=== PATIENT | female | born 1935 | race Caucasian/White ===

== ENCOUNTER → 2016-12-04 | Outpatient (CLI) | payer BC ==
[~2016-12-04] MED LIST: ASPEC81 PO; CHOL1000 PO; CLB200 PO; CLTP PO; HYDR-5688 PO; MULT-513 PO; PSYL55.43 PO; [UNRECOGNIZED DRUG - OTHER] PO; [UNRECOGNIZED DRUG - OTHER] PO
--- NOTE | 2016-12-04 15:30 | MAMMOGRAPHY REPORT ---
BILATERAL DIGITAL SCREENING MAMMOGRAM WITH CAD: 12/04/2016 CLINICAL HISTORY: Routine screening. During this screening exam, the patient reported right breast a nd axilla tenderness for 6-7 months. TECHNIQUE: Bilateral CC and MLO views were obtained. Current study was also evaluated with a Compute r Aided Detection (CAD) system. COMPARISON: Comparison is made to exams dated: 12/04/2015 mammogram, 04/26/2014 mammogram, 01/17/2013 m ammogram, 01/14/2012 mammogram, 12/17/2010 mammogram, and 08/07/2009 mammogram - [facility] nter. BREAST COMPOSITION: There are scattered areas of fibroglandular density in both breasts. FINDINGS: There are diffuse benign rim calcifications and moderate vascular calcifications in the anna asts. No suspicious mass, architectural distortion or cluster of suspicious microcalcifications is s een. IMPRESSION: ACR BI-RADS CATEGORY 1: NEGATIVE 1. Stable bilateral mammograms, without mammographic evidence of malignancy. 2. The patient reported right breast and axillary tenderness for 6-7 months to our mammography techn ologist during the screening exam. Clinical follow-up is recommended, and a targeted ultrasound may be useful, if clinically indicated. Otherwise, a 1 year screening mammogram is recommended. The patient will receive written notification of the results. Approximately 10% of breast cancers are not detected with mammography. A negative mammographic report should not delay biopsy if a clinically suggestive mass is present. Rosa Vogt M.D. ay/:12/04/2016 13:37:17 Roller Repairer: Fallon DOVE(Stoney)(Ignacio), [facility] letter sent: Normal 1/2 BI-RADS Code: ACR BI-RADS Category 1: Negative
== END | disposition home or self-care (01) ==
LOC: C.MAMM 12:41
PROVIDERS: ATTEND Family Medicine
DX: Z12.31 Encounter for screening mammogram for malignant neoplasm of breast (principal); N64.89 Other specified disorders of breast

== ENCOUNTER → 2017-12-06 | Outpatient (CLI) | payer BC ==
[~2017-12-06] MED LIST changes: -ASPEC81 PO; +ASPI-320 PO
--- NOTE | 2017-12-07 07:31 | MAMMOGRAPHY REPORT ---
BILATERAL DIGITAL SCREENING MAMMOGRAM TOMOSYNTHESIS WITH CAD: 12/06/2017 CLINICAL HISTORY: Routine screening. The patient reported pain and thickening in the lateral right br east for 1 year. TECHNIQUE: The study was acquired using full field digital technology and interpreted from soft copy. Breast tomosynthesis in addition to standard 2D mammography was performed. Current study was also ev aluated with a Computer Aided Detection (CAD) system. COMPARISON: Comparison is made to exams dated: 12/04/2016 mammogram and 12/04/2015 mammogram - [facility]. BREAST COMPOSITION: There are scattered areas of fibroglandular density in both breasts. FINDINGS: A square-shaped pain marker overlies the area of pain and thickening in the right upper out er quadrant. There is no evidence of a new suspicious mass, asymmetry, area of distortion or suspici ous microcalcifications bilaterally, with particular attention to the area of pain and thickening in the right upper outer quadrant. There are diffuse benign rim calcifications and moderate vascular ca lcifications. IMPRESSION: ACR BI-RADS CATEGORY 1: NEGATIVE 1. Stable bilateral mammograms, without mammographic evidence of malignancy. 2. Clinical follow-up is recommended for the reported chronic pain in the right upper outer quadrant . Otherwise a one year screening mammogram is recommended. (12/07/2018) The patient will receive written notification of the results. Some breast cancers are not detected with mammography. A negative mammographic report should not hugo y biopsy if a clinically suggestive mass is present. Rosa Vogt M.D. ay/:12/06/2017 17:00:32 Advanced Registered Nurse: RT Guevara(Stoney)(M), [facility] letter sent: Normal 1/2 BI-RADS Code: ACR BI-RADS Category 1: Negative
== END | disposition home or self-care (01) ==
LOC: C.MAMM 13:11
PROVIDERS: ATTEND Family Medicine
DX: Z12.31 Encounter for screening mammogram for malignant neoplasm of breast (principal); N64.4 Mastodynia

== ENCOUNTER 2017-12-19 12:13 | Observation (INO) | payer BC ==
[2017-12-19] VITALS (7 sets, daily range): BP systolic 140–192; BP diastolic 68–97; PULSE 72–106; TEMP 36.5–36.8; O2SAT 94–98; Ht 157.5 cm; Wt 91.3 kg
[~2017-12-19] VITALS: Ht 157.5 cm; Wt 91.3 kg
[2017-12-19] MEDS ORDERED: ALBUT/IPRATROP 3MG/0.5MG NEB 3 ML VIAL INH STA (12:29)
[2017-12-19] MEDS ORDERED: SODIUM CHLORIDE 0.9% 500ML 500 ML IV STA (12:29)
--- NOTE | 2017-12-19 12:31 | EMERGENCY ROOM VISIT NOTE ---
History Report prepared by Leda: Odell Griffiths Under the Supervision of: Dr. Glenn Man M.D. First contact with patient: 12:17 Chief Complaint: CHEST PAIN Stated Complaint: CHEST PAIN, HEADACHE, DIZZY History of Present Illness The patient is a 82 year old female who presents to the Emergency Room with complaints of intermittent chest pain that began an hour and a half ago. Patient states the chest pain came on when she stood up and only "lasted a couple of minutes". She states the pain radiated to her shoulders bilaterally. She adds she was also SOB and dizzy. Patient denies a history of similar symptoms. She denies any chest pain in the ER but states she still has intermittent SOB. Patient adds she has congestion but states it is chronic. Patient denies fevers, chills, cough, nausea, diaphoresis, vomiting, urinary symptoms, and numbness. Patient denies a history of hyperlipidemia, heart attacks, and smoking. Patient is present with family. Source of History: patient Onset: Hour and a half ago Position: chest Timing: intermittent Modifying Factors (Worsening): other (Standing up) Modifying Factors (Relieving): other (None) Associated Symptoms: + SOB, No fevers, No chills, No diaphoresis, No cough, No nausea, No vomiting, No numbness Note: Positive dizziness and congestion. Review of Systems See HPI for pertinent positives and negatives. A total of ten systems were reviewed and were otherwise negative. Past Medical & Surgical Medical Problems: (1) Arthritis of left hip (2) Diverticulosis Colon (W/O Ment Of Hemorrhage) (3) HEARING LOSS NEC (4) Hypertension Nos (5) LUMP OR MASS IN BREAST (6) MIXED HYPERLIPIDEMIA (7) MORBID OBESITY (8) OTHER CONDITIONS OF BRAIN (9) pylonephritis Family History Omitted secondary to age. Social History Smoking Status: Never Smoker Marital Status: Housing Status: lives with family Current/Historical Medications No Active Prescriptions or Reported Meds Allergies Coded Allergies: Amoxicillin (Unverified Allergy, Intermediate, ., 12/19/17) Iron (Verified Allergy, Unknown, HIVES, 12/19/17) In higher doses- patient states if she absolutely needs to take iron supplement she can take since she does not accept blood transfusions Physical Exam Vital Signs Date Time Temp Pulse Resp B/P (MAP) Pulse Ox O2 Delivery O2 Flow Rate FiO2 12/19/17 14:30 98 Room Air 12/19/17 14:19 68 16 183/86 94 Room Air 12/19/17 12:49 70 16 161/80 99 Room Air 12/19/17 12:42 75 16 190/70 97 Room Air 12/19/17 12:42 97 Room Air 12/19/17 12:31 75 12/19/17 12:23 97 Room Air 12/19/17 12:15 36.7 83 17 191/96 95 Room Air Physical Exam GENERAL: Awake, alert, fatigued-appearing, in no distress HENT: Normocephalic, atraumatic. Oropharynx unremarkable. Mucous membranes are dry. EYES: Normal conjunctiva. Sclera non-icteric. NECK: Supple. No nuchal rigidity. FROM. No JVD. RESPIRATORY: Isolated intermittent wheezing otherwise clear to auscultation. CARDIAC: Regular rate, normal rhythm. Extremities warm and well perfused. Pulses equal. ABDOMEN: Soft, non-distended. No tenderness to palpation. No rebound or guarding. No masses. RECTAL: Deferred. MUSCULOSKELETAL: Chest examination reveals no tenderness. The back is symmetrical on inspection without obvious abnormality. There is no CVA tenderness to palpation. No joint edema. LOWER EXTREMITIES: Calves are equal size bilaterally and non-tender. No edema. No discoloration. NEURO: Normal sensorium. No sensory or motor deficits noted. SKIN: No rash or jaundice noted. Medical Decision & Procedures ER Provider Diagnostic Interpretation: Radiology results as stated below per my review and radiologist interpretation: CHEST ONE VIEW PORTABLE CLINICAL HISTORY: CHEST PAIN dyspnea COMPARISON STUDY: 04/22/2015 FINDINGS: The bones soft tissues and hemidiaphragms are normal. The cardiomediastinal silhouette is normal. The lungs are clear. The pulmonary vasculature is normal. IMPRESSION: Negative chest. The above report was generated using voice recognition software. It may contain grammatical, syntax or spelling errors. Electronically signed by: Merrick Castillo M.D. 12/19/2017 12:35 PM Laboratory Results 12/19/17 12:40 Red Blood Count 4.56, Mean Corpuscular Volume 94.1, Mean Corpuscular Hemoglobin 33.3, Mean Corpuscular Hemoglobin Concent 35.4, Mean Platelet Volume 10.3, Neutrophils (%) (Auto) 57.9, Lymphocytes (%) (Auto) 31.5, Monocytes (%) (Auto) 9.4, Eosinophils (%) (Auto) 0.4, Basophils (%) (Auto) 0.6, Neutrophils # (Auto) 5.23, Lymphocytes # (Auto) 2.85, Monocytes # (Auto) 0.85, Eosinophils # (Auto) 0.04, Basophils # (Auto) 0.05 12/19/17 12:40 Test 12/19/17 12:40 White Blood Count 9.04 K/uL (4.8-10.8) Red Blood Count 4.56 M/uL (4.2-5.4) Hemoglobin 15.2 g/dL (12.0-16.0) Hematocrit 42.9 % (37-47) Mean Corpuscular Volume 94.1 fL (80-100) Mean Corpuscular Hemoglobin 33.3 pg (25-34) Mean Corpuscular Hemoglobin Concent 35.4 g/dl (32-36) Platelet Count 179 K/uL (130-400) Mean Platelet Volume 10.3 fL (7.4-10.4) Neutrophils (%) (Auto) 57.9 % Lymphocytes (%) (Auto) 31.5 % Monocytes (%) (Auto) 9.4 % Eosinophils (%) (Auto) 0.4 % Basophils (%) (Auto) 0.6 % Neutrophils # (Auto) 5.23 K/uL (1.4-6.5) Lymphocytes # (Auto) 2.85 K/uL (1.2-3.4) Monocytes # (Auto) 0.85 K/uL (0.11-0.59) Eosinophils # (Auto) 0.04 K/uL (0-0.5) Basophils # (Auto) 0.05 K/uL (0-0.2) RDW Standard Deviation 42.1 fL (36.4-46.3) RDW Coefficient of Variation 12.4 % (11.5-14.5) Immature Granulocyte % (Auto) 0.2 % Immature Granulocyte # (Auto) 0.02 K/uL (0.00-0.02) Prothrombin Time 10.3 SECONDS (9.0-12.0) Prothromb Time International Ratio 1.0 (0.9-1.1) Anion Gap 5.0 mmol/L (3-11) Est Creatinine Clear Calc Drug Dose 65.4 ml/min Estimated GFR () 93.5 Estimated GFR (Non- 80.7 BUN/Creatinine Ratio 28.3 (10-20) Calcium Level 9.3 mg/dl (8.5-10.1) Phosphorus Level 2.8 mg/dl (2.5-4.9) Magnesium Level 2.0 mg/dl (1.8-2.4) Total Bilirubin 0.5 mg/dl (0.2-1) Direct Bilirubin 0.1 mg/dl (0-0.2) Aspartate Amino Transf (AST/SGOT) 19 U/L (15-37) Alanine Aminotransferase (ALT/SGPT) 32 U/L (12-78) Alkaline Phosphatase 117 U/L (45-117) Pro-B-Type Natriuretic Peptide 86 pg/ml (0-1800) Total Protein 7.6 gm/dl (6.4-8.2) Albumin 4.1 gm/dl (3.4-5.0) Lipase 146 U/L (73-393) Laboratory results reviewed by me Medications Administered Medications (Trade) Dose Ordered Sig/Declan Route Start Time Stop Time Status Last Admin Dose Admin Albuterol/ Ipratropium (Duoneb) 3 ml NOW STAT INH 12/19/17 12:29 12/19/17 12:34 DC 12/19/17 12:48 3 ML Sodium Chloride 500 ml @ 999 mls/hr Q31M STAT IV 12/19/17 12:29 12/19/17 12:59 DC 12/19/17 12:48 999 MLS/HR Prednisone (PredniSONE TAB) 60 mg NOW STAT PO 12/19/17 13:46 12/19/17 13:47 DC 12/19/17 13:46 60 MG ECG Per My Interpretation Indication: chest pain Rate (beats per minute): 77 Rhythm: sinus rhythm Findings: no acute ischemic change, other (Normal axis) ED Course 1220: The patient was evaluated in room A12B. A complete history and physical exam was performed. 1345: I reevaluated the patient and updated her on her findings. 1402: Upon reexamination, the patient will be further evaluated. I discussed the test results and treatment plan with her. The patient will be evaluated for further management. Medical Decision I reviewed the patient's past medical history, medications, and the nursing notes as described above. Differential diagnosis: Etiologies such as cardiac ischemia, aortic dissection, pulmonary embolism, pneumonia, pneumothorax, musculoskeletal, infections, pericarditis, myocarditis , esophageal rupture, gastrointestinal, as well as others were entertained. The patient is an 82-year-old woman who presents emergency department with episode of chest pain this morning with severe pressure on her chest lasting 3 minutes with repeat episode minutes later with associated constant shortness of breath since then and radiation to her shoulders per hpi. On arrival the patient is in no acute distress, afebrile stable vital signs. She denies chest pain at this time. On exam the patient has scant intermittent isolated wheeze but otherwise clear lungs. EKG demonstrates sinus rhythm at 77 without acute ischemia. Of note machine reads as junctional rhythm however regular P waves are noted albeit with low amplitude. Chest x-ray negative. WBC within normal limits. On remarkable however with BUN/creatinine> 20 suggesting mild dehydration. Troponin negative 2 hours after Sx onset. Patient with improvement in her SOB after duoneb therefore possible bronchitis component. Will additional tx with prednisone. Otherwise given the patient's symptoms of severe chest heaviness, lightheadedness, shortness of breath, radiation to her shoulders story is concerning for possible underlying cardiac etiology. Given the patient's age HEART score 6, moderate risk, thus reasonable to admit for further cardiac r/o. Case was discussed with Dr. Blake, [facility], who will admit the patient for further management. Medication Reconcilliation Current Medication List: was personally reviewed by me Blood Pressure Screening Patient's blood pressure: Elevated blood pressure Referred to hospitalist. Consults Time Called: 1354 Consulting Physician: Dr. Maria E LAMB Returned Call: 1356 I discussed the patient with Dr. Maria E LAMB will evaluate the patient for further treatment. Impression Primary Impression: Bronchitis Additional Impression: Substernal chest pain Scribe Attestation The scribe's documentation has been prepared under my direction and personally reviewed by me in its entirety. I confirm that the note above accurately reflects all work, treatment, procedures, and medical decision making performed by me. Departure Information Dispostion Being Evaluated By Hospitalist Prescriptions No Active Prescriptions or Reported Meds Referrals Huey Cardoso M.D. (PCP) Forms HOME CARE DOCUMENTATION FORM, IMPORTANT VISIT INFORMATION Patient Instructions My [facility] Problem Qualifiers
--- NOTE | 2017-12-19 12:36 | DIAGNOSTIC IMAGING REPORT ---
CHEST ONE VIEW PORTABLE CLINICAL HISTORY: CHEST PAIN dyspnea COMPARISON STUDY: 04/22/2015 FINDINGS: The bones soft tissues and hemidiaphragms are normal. The cardiomediastinal silhouette is normal. The lungs are clear. The pulmonary vasculature is normal. IMPRESSION: Negative chest. The above report was generated using voice recognition software. It may contain grammatical, syntax or spelling errors. Electronically signed by: Merrick Castillo M.D. 12/19/2017 12:35 PM Dictated Date/Time: 12/19/2017 12:35 PM
[2017-12-19 12:50] LABS: BASO % 0.6 %; BASO ABS # 0.05 K/uL (0-0.2); EOS % 0.4 %; EOS ABS # 0.04 K/uL (0-0.5); HEMATOCRIT 42.9 % (37-47); HEMOGLOBIN 15.2 g/dL (12.0-16.0); IG# 0.02 K/uL (0.00-0.02); LYMPH % 31.5 %; LYMPH ABS # 2.85 K/uL (1.2-3.4); MEAN CELL VOLUME 94.1 fL (80-100); MEAN CORPUSCULAR HEMOGLOBIN 33.3 pg (25-34); MEAN CORPUSCULAR HGB CONC 35.4 g/dl (32-36); MEAN PLATELET VOLUME 10.3 fL (7.4-10.4); MONO % 9.4 %; MONO ABS # 0.85 K/uL (0.11-0.59); NEUT % 57.9 %; NEUT ABS # 5.23 K/uL (1.4-6.5); PLATELET COUNT 179 K/uL (130-400); RED CELL DISTRIBUTION WIDTH CV 12.4 % (11.5-14.5); RED CELL DISTRIBUTION WIDTH SD 42.1 fL (36.4-46.3); WHITE BLOOD COUNT 9.04 K/uL (4.8-10.8)
[2017-12-19 13:10] LABS: ALBUMIN 4.1 gm/dl (3.4-5.0); ALKALINE PHOSPHATASE 117 U/L (45-117); ALT/SGPT 32 U/L (12-78); AST/SGOT 19 U/L (15-37); BLOOD UREA NITROGEN 20 mg/dl (7-18); CALCIUM 9.3 mg/dl (8.5-10.1); CARBON DIOXIDE 28 mmol/L (21-32); GLUCOSE 145 mg/dl (70-99); LIPASE 146 U/L (73-393); PHOSPHORUS 2.8 mg/dl (2.5-4.9); POTASSIUM 4.2 mmol/L (3.5-5.1); SODIUM 136 mmol/L (136-145); TOTAL PROTEIN 7.6 gm/dl (6.4-8.2)
[2017-12-19] MEDS ORDERED: ONDANSETRON INJ 2 MG/ML 2 ML VIAL IV PRN (15:00)
[2017-12-19] MEDS ORDERED: ACETAMINOPHEN 325 MG TAB PO PRN (15:00)
[2017-12-19] MEDS ORDERED: POLYETHYLENE (MIRALAX) 17 GM PACK PO PRN (15:00)
[2017-12-19] MEDS ORDERED: ALUMINUM/MAGNESIUM/SIMETH (MAALOX MAX) 30 ML UDC PO PRN (15:00)
[2017-12-19] MEDS ORDERED: MAGNESIUM HYDROXIDE SUSP 30 ML UDC PO PRN (15:00)
[2017-12-19] MEDS ORDERED: IV FLUIDS COMPLETED PRN (15:30)
--- NOTE | 2017-12-19 15:34 | History and Physical ---
History & Physical Date & Time of Service: Dec 19, 2017 at 15:13 Chief Complaint: Chest Pain, Headache, Dizzy Primary Care Physician: Huey Cardoso M.D. History of Present Illness Source: patient, family ( and children at bedside), clinic records, hospital records This is an 82 y/o female with a history of asthma, sensorineural hearing loss, osteoarthritis, and vertigo who presented to the ED on 12/19 with chest pain and shortness of breath. The patient states she was at a meeting this morning and upon standing up she developed a sharp pain across her chest and into her shoulders and back. She states she then developed shortness of breath and dizziness. She states this episode lasted about 5 minutes, although her shortness of breath lingered longer until she was treated in the ED. She has never experienced anything like this in the past, so the pain was concerning for her. She currently denies any pain and states her SOB has resolved, as well as her dizziness. She does report feeling somewhat fatigued. She denies any previous cardiac history and states her blood pressure is typically normal or low. She does report a productive cough with clear sputum but states this is chronic. The patient denies fevers, chills, sweats, palpitations, claudication, wheezing, nausea, vomiting, abdominal pain, dysuria, hematuria, urinary retention, paralysis, weakness, numbness and tingling. Past Medical/Surgical History Medical Problems: (1) Arthritis of left hip (2) Diverticulosis Colon (W/O Ment Of Hemorrhage) (3) HEARING LOSS NEC (4) Hypertension Nos (5) LUMP OR MASS IN BREAST (6) MIXED HYPERLIPIDEMIA (7) MORBID OBESITY (8) OTHER CONDITIONS OF BRAIN (9) pylonephritis Asthma Sensorineural hearing loss Osteoarthritis Vertigo Family History Congestive heart failure Diabetes mellitus Heart disease Hypothyroidism Myocardial infarction Rectal cancer Social History Smoking Status: Never Smoker Smokeless Tobacco Use: No Alcohol Use: none Drug Use: none Marital Status: Housing status: lives with family ( and son) Occupational Status: retired Immunizations History of Influenza Vaccine: Yes History of Tetanus Vaccine?: No History of Pneumococcal: Yes History of Hepatitis B Vaccine: No Allergies Coded Allergies: Amoxicillin (Unverified Allergy, Intermediate, ., 12/19/17) Iron (Verified Allergy, Unknown, HIVES, 12/19/17) In higher doses- patient states if she absolutely needs to take iron supplement she can take since she does not accept blood transfusions Home Medications No Active Prescriptions or Reported Meds Review of Systems Constitutional: +Fatigue. No fever, No chills, No sweats Eyes: No worsening of vision, No eye pain, No diplopia ENT: +Severe hearing loss, baseline. No nasal symptoms, No trouble swallowing Respiratory: +Productive cough, chronic. Shortness of breath, resolved. No wheezing Cardiovascular: +Chest pain. No claudication, No palpitations Abdomen: No pain, No nausea, No vomiting Musculoskeletal: No joint pain, No muscle pain, No swelling Genitourinary - Female: No dysuria, No urinary retention, No hematuria Neurologic: No paralysis, No weakness, No numbness/tingling Integumentary: No rash, No itch, No color change Physical Exam Vital Signs Date Time Temp Pulse Resp B/P (MAP) Pulse Ox O2 Delivery O2 Flow Rate FiO2 12/19/17 14:19 68 16 183/86 94 Room Air 12/19/17 12:49 70 16 161/80 99 Room Air 12/19/17 12:42 75 16 190/70 97 Room Air 12/19/17 12:42 97 Room Air 12/19/17 12:31 75 12/19/17 12:23 97 Room Air 12/19/17 12:15 36.7 83 17 191/96 95 Room Air General appearance: +Obese. Well-developed, well-nourished, no apparent distress Head: Normocephalic, atraumatic Eyes: Normal inspection, PERRL, EOMI ENT: +Severe hearing loss, chronic. Communicates by reading lips. Normal ENT inspection, pharynx normal Neck: Supple, no JVD, trachea midline Respiratory/Chest: +Minimal wheezing. Normal breath sounds, no respiratory distress Cardiovascular: Regular rate & rhythm, no gallop, no murmur Abdomen/GI: Normal bowel sounds, non-tender, soft Extremities/Musculoskeletal: Normal inspection, no calf tenderness, no pedal edema Neurological/Psych: Alert, normal mood/affect, oriented x 3 Skin: Normal color, warm/dry, no rash Diagnostics Laboratory Results Results Past 24 Hours Test 12/19/17 12:40 12/19/17 15:00 Range/Units White Blood Count 9.04 4.8-10.8 K/uL Red Blood Count 4.56 4.2-5.4 M/uL Hemoglobin 15.2 12.0-16.0 g/dL Hematocrit 42.9 37-47 % Mean Corpuscular Volume 94.1 80-100 fL Mean Corpuscular Hemoglobin 33.3 25-34 pg Mean Corpuscular Hemoglobin Concent 35.4 32-36 g/dl Platelet Count 179 130-400 K/uL Mean Platelet Volume 10.3 7.4-10.4 fL Neutrophils (%) (Auto) 57.9 % Lymphocytes (%) (Auto) 31.5 % Monocytes (%) (Auto) 9.4 % Eosinophils (%) (Auto) 0.4 % Basophils (%) (Auto) 0.6 % Neutrophils # (Auto) 5.23 1.4-6.5 K/uL Lymphocytes # (Auto) 2.85 1.2-3.4 K/uL Monocytes # (Auto) 0.85 0.11-0.59 K/uL Eosinophils # (Auto) 0.04 0-0.5 K/uL Basophils # (Auto) 0.05 0-0.2 K/uL RDW Standard Deviation 42.1 36.4-46.3 fL RDW Coefficient of Variation 12.4 11.5-14.5 % Immature Granulocyte % (Auto) 0.2 % Immature Granulocyte # (Auto) 0.02 0.00-0.02 K/uL Prothrombin Time 10.3 9.0-12.0 SECONDS Prothromb Time International Ratio 1.0 0.9-1.1 Sodium Level 136 136-145 mmol/L Potassium Level 4.2 3.5-5.1 mmol/L Chloride Level 103 98-107 mmol/L Carbon Dioxide Level 28 21-32 mmol/L Anion Gap 5.0 3-11 mmol/L Blood Urea Nitrogen 20 7-18 mg/dl Creatinine 0.70 0.60-1.20 mg/dl Est Creatinine Clear Calc Drug Dose 65.4 ml/min Estimated GFR () 93.5 Estimated GFR (Non- 80.7 BUN/Creatinine Ratio 28.3 10-20 Random Glucose 145 70-99 mg/dl Calcium Level 9.3 8.5-10.1 mg/dl Phosphorus Level 2.8 2.5-4.9 mg/dl Magnesium Level 2.0 1.8-2.4 mg/dl Total Bilirubin 0.5 0.2-1 mg/dl Direct Bilirubin 0.1 0-0.2 mg/dl Aspartate Amino Transf (AST/SGOT) 19 15-37 U/L Alanine Aminotransferase (ALT/SGPT) 32 12-78 U/L Alkaline Phosphatase 117 45-117 U/L Troponin I < 0.015 0-0.045 ng/ml Pro-B-Type Natriuretic Peptide 86 0-1800 pg/ml Total Protein 7.6 6.4-8.2 gm/dl Albumin 4.1 3.4-5.0 gm/dl Lipase 146 73-393 U/L Diagnostic Radiology Reviewed the following studies and agree with interpretation as follows: CHEST ONE VIEW PORTABLE CLINICAL HISTORY: CHEST PAIN dyspnea COMPARISON STUDY: 04/22/2015 FINDINGS: The bones soft tissues and hemidiaphragms are normal. The cardiomediastinal silhouette is normal. The lungs are clear. The pulmonary vasculature is normal. IMPRESSION: Negative chest. EKG Reviewed EKG and agree with interpretation as follows: 77 bpm, normal sinus rhythm Impression Assessment and Plan 82 y/o female with a history of asthma, sensorineural hearing loss, osteoarthritis, and vertigo who presented to the ED on 12/19 with chest pain and shortness of breath. Pt hypertensive on arrival, BP up to 191/96. Pt otherwise afebrile, VSS. CXR no acute disease. EKG no acute ischemic changes. Troponin negative. Labs are grossly unremarkable. Chest pain, ACS r/o -Admit to telemetry for observation -Trend cardiac enzymes q8h x 3, first trop negative -Dobutamine tress echo in am if negative -NPO after midnight -Fasting lipid panel -Random BSG 145, will check HgbA1c -EKG q am and prn chest pain Elevated blood pressure w/o diagnosis of HTN--per pt and family, BP is normally very well controlled if not low -Pt states automatic cuff is squeezing too tight and is painful. She has been holding her breath, clenching her arm and bearing down while her BP is being taken so readings may not be accurate -Will check BP manually to see if this improves -If BP still elevated, hydralazine 10 mg IV q6h prn SBP >180 -If BP staying persistently high, will initiate scheduled antihypertensives. Will hold off for now as BP is usually low/normal and may be elevated now due to stress/anxiety relating to this new chest pain Chronic cough, possible chronic bronchitis, h/o asthma--pt states she feels better after prednisone/DuoNeb -Pt given prednisone 60 mg PO x1 in ED. Will quickly taper, decrease by 10 mg qd starting w/50 mg tomorrow -DuoNebs QIDR and q2h prn SOB/wheezing Osteoarthritis -Tylenol prn pain DVT prophylaxis -Enoxaparin 40 mg SC q24h -SINA Dangelo Code Status -Level I, FULL RESUSCITATION STATUS -No prolonged measures -No blood or blood products ([facility]) Resuscitation Status VTE Prophylaxis Will order VTE Prophylaxis: Yes
[2017-12-19] MEDS ORDERED: HydrALAZINE HCL 20 MG/ML VIAL IV. PRN (15:45)
[2017-12-19] MEDS ORDERED: ENOXAPARIN 40 MG/0.4 ML SYR SC SCH (17:00)
[2017-12-19] MEDS: ALBUT/IPRATROP 3MG/0.5MG NEB 3 ML VIAL INH SCH ×2 (17:25→19:08)
[2017-12-19 21:01] LABS: CKMB 3.3 ng/ml (0.5-3.6)
[2017-12-20] VITALS (7 sets, daily range): BP systolic 140–143; BP diastolic 62–86; PULSE 69–96; TEMP 36.5–37; O2SAT 93–96
[2017-12-20 04:42] LABS: HEMATOCRIT 41.4 % (37-47); HEMOGLOBIN 14.3 g/dL (12.0-16.0); MEAN CORPUSCULAR HEMOGLOBIN 32.1 pg (25-34); MEAN CORPUSCULAR HGB CONC 34.5 g/dl (32-36); MEAN PLATELET VOLUME 10.6 fL (7.4-10.4); PLATELET COUNT 190 K/uL (130-400); RED CELL DISTRIBUTION WIDTH CV 12.3 % (11.5-14.5); RED CELL DISTRIBUTION WIDTH SD 41.8 fL (36.4-46.3); WHITE BLOOD COUNT 10.42 K/uL (4.8-10.8)
[2017-12-20 05:05] LABS: BLOOD UREA NITROGEN 19 mg/dl (7-18); CARBON DIOXIDE 25 mmol/L (21-32); CHOLESTEROL 197 mg/dl (0-200); CKMB 2.4 ng/ml (0.5-3.6); CREATININE 0.71 mg/dl (0.60-1.20); GLUCOSE 105 mg/dl (70-99); LDL CHOLESTEROL CALCULATED 110 mg/dl; POTASSIUM 4.2 mmol/L (3.5-5.1); SODIUM 139 mmol/L (136-145)
[2017-12-20] MEDS: ALBUT/IPRATROP 3MG/0.5MG NEB 3 ML VIAL INH SCH ×3 (07:19→15:43)
[2017-12-20] MEDS ORDERED: DOBUTamine HCL 12.5 MG/ML 20 ML VIAL ONE (10:09)
[2017-12-20] MEDS ORDERED: ATROPINE SULFATE 0.1 MG/ML 10 ML SYR ONE (10:10)
[2017-12-20] MEDS ORDERED: METOPROLOL TARTRATE 1 MG/ML VIAL ONE (10:10)
[2017-12-20] MEDS ORDERED: PERFLUTREN LIPID MICROSPHERE (DEFINITY) IV ONE (10:47)
--- NOTE | 2017-12-20 14:46 | Discharge Instructions ---
Discharge Instructions Date of Service Dec 20, 2017. Admission Reason for Admission: Bronchitis, Substernal Chest Pain Discharge Discharge Diagnosis / Problem: Chest pain, bronchitis Discharge Goals Goal(s): Improve disease control Activity Recommendations Activity Limitations: resume your previous activity Exercise/Sports Limitations: gradually increase as tolerated . Instructions / Follow-Up Instructions / Follow-Up Please follow up with your primary care provider within about a week. Because your heart rate became a bit elevated with ambulation, I will have you follow up with an outpatient heart rhythm study. Our nurse navigator will set that up for you and the office will call you with an appointment You will be discharged with a prednisone taper as follows: 40 mg x 1 day 30 mg x 1 day 20 mg x 1 day 10 mg x 1 day Current Hospital Diet Patient's current hospital diet: AHA Diet (Heart Healthy) Discharge Diet Recommended Diet: AHA Diet (Heart Healthy) Procedures Procedures Performed: Dobutamine stress test Pending Studies Studies pending at discharge: no Laboratory Results Hemoglobin A1c Test 12/19/17 12:40 Range/Units Estimated Average Glucose 97 mg/dl Hemoglobin A1c 5.0 4.5-5.6 % Lipid Panel Test 12/20/17 04:08 Range/Units Triglycerides Level 176 H 0-150 mg/dl Cholesterol Level 197 0-200 mg/dl HDL Cholesterol 52 mg/dl Cholesterol/HDL Ratio 3.8 LDL Cholesterol, Calculated 110 mg/dl Medical Emergencies . Who to Call and When: Medical Emergencies: If at any time you feel your situation is an emergency, please call 911 immediately. . Non-Emergent Contact Non-Emergency issues call your: Primary Care Provider Call Non-Emergent contact if: you have a fever, you have any medication questions . . "Provider Documentation" section prepared by Alanis Bryant. .
[2017-12-20] MEDS ORDERED: PRD10 PO (14:51)
--- NOTE | 2017-12-20 14:58 | Discharge Summary ---
Discharge Summary Date of Service Dec 20, 2017. Discharge Summary Admission Date: Dec 19, 2017 at 15:08 Discharge Date: Dec 20, 2017 Discharge Disposition: Home Principal Diagnosis: chest pain Immunizations: Have You Had Influenza Vaccine: Yes History of Tetanus Vaccine?: No History of Pneumococcal: Yes History of Hepatitis B Vaccine: No Procedures: Dobutamine Stress Test - normal Medication Reconciliation New Medications: Prednisone (Prednisone) 10 Mg Tab 10 MG PO DAILY for 4 Days, #10 TAB Decrease by 10 mg daily 40 mg x 1 day 30 mg x 1 day 20 mg x 1 day 10 mg x 1 day Discharge Exam ROS Constitutional: no chills, aches, sweats or fever Respiratory: no sob,cough, sputum, or wheezing Cardiac: no chest pain, palpitations, edema, orthopnea or lightheadedness GI: no abdominal pain, nausea, vomiting, diarrhea or constipation : no dysuria or hesitancy Extremities: no joint pain or weakness Skin: no rash All other systems reviewed and negative General: no distress Eyes: normal inspection, PERLL Respiratory: chest non tender, clear to auscultation, normal breath sounds, no respiratory distress, no accessory muscle use Cardiac: regular rate and rhythm, no rub or gallop, no murmur, no edema, no jvd GI/: active bowel sounds, no abd pain or tenderness, soft, non distended Extremities: normal range of motion, normal strength, non tender Neuro/Psych: alert and oriented x 3, normal mood and affect Skin: normal color, dry Hospital Course This is an 82 y/o female with a history of asthma, sensorineural hearing loss, osteoarthritis, and vertigo who presented to the ED on 12/19 with chest pain and shortness of breath. The patient stated she was at a meeting this morning and upon standing up she developed a sharp pain across her chest and into her shoulders and back. She stated she then developed shortness of breath and dizziness. She stated this episode lasted about 5 minutes, although her shortness of breath lingered longer until she was treated in the ED. She has never experienced anything like this in the past, so the pain was concerning for her. Chest pain, ACS r/o -Admit to telemetry for observation -Troponins negative x 3 -Dobutamine stress echo normal -Fasting lipid panel - triglycerides elevated at 176 -Random BSG 145, will check HgbA1c -EKG q am and prn chest pain - patient did have an elevated rate of about 140 with ambulation on the monitor. Asymptomatic. Will have her follow up with Holter monitor study Elevated blood pressure w/o diagnosis of HTN--per pt and family, BP is normally very well controlled if not low -Pt states automatic cuff is squeezing too tight and is painful. She has been holding her breath, clenching her arm and bearing down while her BP is being taken so readings may not be accurate - manual blood pressure showed acceptable bp however patient did experience elevated pressures during dobutamine stress Chronic cough, possible chronic bronchitis, h/o asthma--pt states she feels better after prednisone/DuoNeb -Pt given prednisone 60 mg PO x1 in ED. Will quickly taper, decrease by 10 mg qd -DuoNebs QIDR and q2h prn SOB/wheezing while inpatient Osteoarthritis -Tylenol prn pain [employer] Physician Supervision Note: I discussed with Alanis Bryant NP and agree with findings and plan as documented in the note. Any exceptions or clarifications are listed here: None Patient came in with atypical chest pain did have a stress test which was read to me as unremarkable by Dr. Ferguson the patient did have some sinus tach with walking in the unit but no apparent arrhythmias none were noted on the verbal sign out of the stress test to me by Dr. Ferguson therefore the patient is discharged home with follow-up with her outpatient provider Documented By: Odell Arzola Total Time Spent: Greater than 30 minutes This includes examination of the patient, discharge planning, medication reconciliation, and communication with other providers. Discharge Instructions Please refer to the electronic Patient Visit Report (Discharge Instructions) for additional information. Follow-Up pcp in 1 week Additional Copies To Huey Cardoso M.D.
--- NOTE | 2017-12-20 19:25 | DOBUTAMINE ECHO ---
*NOTICE TO RECEIVING REPUBLICAN AGENCY This information is strictly Confidential and protected under [place] law. [place] law prohibits you from making any further disclosure of this information unless further disclosure is expressly permitted by the written consent of the person to whom it pertains or is authorized by law. A general authorization for the release of medical or other information is not sufficient for this purpose. Hospital accepts no responsibility if the information is made available to any other person, INCLUDING THE PATIENT. Interpretation Summary * Name: NICOLE SALINAS Study Date: 12/20/2017 08:52 AM BP: 176/79 mmHg * Patient Location: C.2T\S\S239\S\2 HR: 73 * : 1935 (M/d/y) Gender: Female Height: 62 in * Age: 82 yrs Ethnicity: [place] Weight: 202 lb * Ordering Physician: Elizabeth Ahumada * Referring Physician: Self, Referred * Performed By: Adriana Aly RDCS * * Reason For Study: Chest Pain * BSA: 1.9 m2 * -- Conclusions -- * Dobutamine Stress Echo: * 1. Negative Dobutamine stress echo for ischemia at 93 % MPHR. * 2. Negative Dobutamine ECG for ischemia at 93 % MPHR. * 3. Hypertensive blood pressure response. * 4. No arrhythmia. * 5. No chest pain reported. * 6. Technically difficult study, enhanced with IV Definity. * Echo: * 1. Normal left ventricular size and systolic function. EF 60-65%. No regional wall motion abnormalities. No left ventricular hypertrophy. Type 1 diastolic dysfunction. * 2. Aortic valve sclerosis moderate, without significant aortic valvular stenosis. * 3. Normal estimated right ventricular systolic pressure. Procedure Details * DOBUTAMINE ECHO, CPT#[id number] * ECHO DOPPLER, CPT #[id number] * ECHO COLOR FLOW, CPT #[id number] * A contrast injection of Definity was performed to improve assessment of LV function. * Contrast was injected into an intravenous site in the left arm. * One vial of Definity ultrasound contrast was diluted in normal saline to a total volume of 10 ml. A total of '4' ml of solution was administered during imaging. * Lot # [id number] of Definity utilized for procedure. * Expiration date 1Jul19. * The attending nurse who injected the contrast agent was Amalia Landis RN. Left Ventricle * The left ventricle is normal in size. * There is normal left ventricular wall thickness. * Left ventricular systolic function is normal. * Resting wall motion: Normal. Stress wall motion: Appropriate increase in Left ventricular systolic function and decrease in cavity size. No stress induced segmental wall motion abnormalities. * The left ventricular ejection fraction increases normally with stress. The left ventricular end-systolic cavity size reduces post-stress (normal response). The left ventricular wall motion with stress is normal. Right Ventricle * The right ventricle is normal in size and function. * The right ventricular systolic function is normal as assessed by tricuspid annular plane systolic excursion (TAPSE) (normal >1.5 cm). Atria * The left atrial size is normal. * Right atrial size is normal. * There is no evidence of atrial septal defect, but resolution does not allow assessment for a patent foramen ovale. Mitral Valve * The mitral valve is grossly normal. * There is no mitral valve stenosis. * There is trace mitral regurgitation. Tricuspid Valve * The tricuspid valve is not well visualized, but is grossly normal. * There is no tricuspid stenosis. * There is mild tricuspid regurgitation. Aortic Valve * Aortic valve sclerosis moderate, without significant aortic valvular stenosis. * The aortic valve is trileaflet. * No hemodynamically significant valvular aortic stenosis. * No aortic regurgitation is present. Pulmonic Valve * The pulmonary valve is inadequately visualized, but the Doppler data is adequate for interpretation. * Mild pulmonic valvular regurgitation. Great Vessels * The aortic root is normal size. * Normal pulmonary venous flow pattern. IVC normal in size and inspiratory collapse. Pericardium * There is no pericardial effusion. Stress Parameters * Sinus rhythm 83 bpm with PACs and PVC. * The stress ECG response was normal * No arrhythmia were noted with stress. * Rest heart rate was '73' BPM. * Rest blood pressure was '176/79' * Maximum heart rate achieved was 129 bpm. * Maximum heart rate was 93 % of maximum age-predicted heart rate. * Maximum blood pressure was '221/34' * Maximum Dobutamine infusion rate was '40' mcg/kg/min. * Dobutamine infusion was terminated due to achieving target heart rate * A total of 5 mg of IV Metoprolol was administered to reverse Dobutamine-induced tachycardia. MMode 2D Measurements and Calculations IVSd 1.0 cm IVSs 1.3 cm LVIDd 4.8 cm LVIDs 3.1 cm LVPWd 1.1 cm LVPWs 1.5 cm IVS/LVPW 0.95 FS 34.1 % EDV(Teich) 105.2 ml ESV(Teich) 38.9 ml EF(Teich) 63.1 % EDV(cubed) 107.6 ml ESV(cubed) 30.7 ml EF(cubed) 71.4 % % IVS thick 27.1 % % LVPW thick 39.8 % LV mass(C)d 178.9 grams LV mass(C)dI 93.2 grams/m\S\2 LV mass(C)s 148.9 grams LV mass(C)sI 77.6 grams/m\S\2 SV(Teich) 66.4 ml SI(Teich) 34.6 ml/m\S\2 SV(cubed) 76.9 ml SI(cubed) 40.0 ml/m\S\2 Ao root diam 3.4 cm Ao root area 9.0 cm\S\2 ACS 1.9 cm LA dimension 3.9 cm LA/Ao 1.2 LVOT diam 2.4 cm LVOT area 4.4 cm\S\2 LVAd ap4 24.2 cm\S\2 LVLd ap4 7.7 cm EDV(MOD-sp4) 63.8 ml EDV(sp4-el) 64.8 ml LVAs ap4 14.7 cm\S\2 LVLs ap4 7.2 cm ESV(MOD-sp4) 28.6 ml ESV(sp4-el) 25.7 ml EF(MOD-sp4) 55.2 % EF(sp4-el) 60.3 % LVAd ap2 30.2 cm\S\2 LVLd ap2 7.4 cm EDV(MOD-sp2) 103.1 ml EDV(sp2-el) 104.9 ml LVAs ap2 14.3 cm\S\2 LVLs ap2 5.9 cm ESV(MOD-sp2) 32.1 ml ESV(sp2-el) 29.4 ml EF(MOD-sp2) 68.9 % EF(sp2-el) 72.0 % LVLd %diff -3.84 % EDV(MOD-bp) 82.7 ml LVLs %diff -21.01 % ESV(MOD-bp) 31.9 ml EF(MOD-bp) 61.4 % SV(MOD-sp4) 35.2 ml SI(MOD-sp4) 18.3 ml/m\S\2 SV(MOD-sp2) 71.0 ml SI(MOD-sp2) 37.0 ml/m\S\2 SV(MOD-bp) 50.8 ml SI(MOD-bp) 26.5 ml/m\S\2 SV(sp4-el) 39.0 ml SI(sp4-el) 20.3 ml/m\S\2 SV(sp2-el) 75.5 ml SI(sp2-el) 39.3 ml/m\S\2 Doppler Measurements and Calculations MV E max lenny 82.0 cm/sec MV A max lenny 88.9 cm/sec MV E/A 0.92 MV dec time 0.27 sec Ao V2 max 139.8 cm/sec Ao max PG 7.8 mmHg Ao max PG (full) 3.0 mmHg MARTHA(V,A) 3.5 cm\S\2 MARTHA(V,D) 3.5 cm\S\2 LV V1 max PG 4.8 mmHg LV V1 max 110.0 cm/sec PA V2 max 91.5 cm/sec PA max PG 3.3 mmHg PI max lenny 149.3 cm/sec PI max PG 8.9 mmHg PI dec slope 202.6 cm/sec\S\2 PI P1/2t 215.8 msec TR max lenny 261.4 cm/sec RVSP(TR) 30.3 mmHg RAP systole 3.0 mmHg
== END 2017-12-20 16:31 | disposition home or self-care (01) ==
LOC: C.EDB 12:14 → C.2T 15:08 → ENRESERV 15:17
PROVIDERS: ADMIT Hospitalist; ATTEND Hospitalist
DX: R07.9 Chest pain, unspecified (principal); J45.909 Unspecified asthma, uncomplicated; H90.5 Unspecified sensorineural hearing loss; M19.90 Unspecified osteoarthritis, unspecified site; I10 Essential (primary) hypertension; E66.01 Morbid (severe) obesity due to excess calories; Z82.49 Family history of ischemic heart disease and other diseases of the circulatory system; Z88.1 Allergy status to other antibiotic agents; Z88.8 Allergy status to other drugs, medicaments and biological substances